=== PATIENT | female | born 1990 | race Caucasian/White ===

== ENCOUNTER 2017-05-03 07:44 | Day surgery (SDC) | payer OTHER ==
[~2017-05-03] VITALS: Ht 167.6 cm; Wt 64.3 kg
--- NOTE | ~2017-05-03 | OR ---
PATIENT'S NAME: MADY MTZ [facility] AGE: 26 [address] ROOM: [address] [address] LOCATION: [facility] ADMIT DATE: 05/03/2017 OR/Procedure Report DISCHARGE DATE: FAMILY PHYSICIAN: PHYSICIAN, JAYCEE ATTENDING PHYSICIAN: Diaz Fernandez SURGEON: Diaz Fernandez MD AUTOMATIC MACHINE ATTENDANT: RACHELLE Cruz DATE OF PROCEDURE: 05/03/2017 PREOPERATIVE DIAGNOSIS: Right tib-fib fracture. POSTOPERATIVE DIAGNOSIS: Right tib-fib fracture. OPERATION: ORIF with long medial locking plate. ANESTHESIA: Popliteal and adductor canal blocks with general ET tube. INDICATIONS: This is a 26-year-old female who sustained a fracture of her right tibia and fibula this past weekend about 4-5 days ago while playing sand volleyball. Radiographs showed a short oblique fracture of the tibia at the junction of the middle and distal thirds and a distal lateral malleolar fracture and a question of a widening of the mortise. DESCRIPTION OF PROCEDURE: The patient was brought to the operating room, and when satisfactory general anesthesia had been established, her right lower extremity was prepped and draped in an aseptic manner. The extremity was exsanguinated with an Esmarch bandage and pneumatic tourniquet inflated to 250 mmHg around the upper thigh. An anteromedial incision was made at the medial malleolus and carried down to the bone. A 14-hole LC-DCP 3.5 mm medial tibial plate was then fixed to the outrigger and the plate was pushed up the subcutaneous border of the tibia. Its position was checked with the C-arm distally and it appeared to fit perfectly, so a guide pin was drilled across one of the holes in the plate to maintain that position. Proximally, the fracture was visualized and reduced with a ball spike clamp and the position of the plate checked on both AP and lateral views and appeared to be satisfactory, so a guide pin was drilled through hole 14 in order to maintain traction and position of the fracture fragments. Distally then four screws were placed, first was a 3.5 cortical screw to suck the plate down onto the bone and then three more locking screws were all placed after drilling a 2.8 hole, measuring, and filling it with a locking screw. Proximally, the screw hole 12 was filled with a 3.5 smooth headed cortical screw to pull the plate down onto the bone and the screw holes 10 and 14 were drilled, measured, and filled with locking screws. The clamp was removed and the fracture appeared to be satisfactorily aligned. The plate appeared to be in satisfactory position and alignment, and so this was accepted. The fibula was visualized PATIENT'S NAME: MADY MTZ [facility] AGE: 26 Y [address] ROOM: [address] [address] LOCATION: [facility] ADMIT DATE: 05/03/2017 OR/Procedure Report DISCHARGE DATE: FAMILY PHYSICIAN: PHYSICIAN, NO ATTENDING PHYSICIAN: Diaz Fernandez and it was nicely reduced at this point. The deltoid ligament was stressed and the mortise did not change. The mortise was anatomically aligned. It was opted to not fix the lateral malleolus. The wounds were irrigated copiously with saline by RACHELLE Horne and subcutaneous fat on the distal wound closed with a running 2-0 Vicryl. The skin was closed with interrupted and running 4-0 nylon sutures for the stab wounds, for the screw holes. Dressings and a boot walker were applied. The tourniquet was deflated, and the patient awakened and sent to recovery area having tolerated the procedure well. MD EVANS CARPIO/mayra /[id number] d: 05/03/17 1526 t: 05/10/17 0910, OPERATIVE SUMMARY
[~2017-05-03 07:44] MED LIST: DEPO PROVER150 MG/ML IM; PERCOCET 5-3251 EACH PO
[2017-05-03 08:58] LABS: HEMATOCRIT 39.3 % (33.0-46.0); HEMOGLOBIN 13.6 g/dL (11.0-15.0)
== END 2017-05-03 17:23 | disposition disaster alternative care site (69) ==
LOC: GSDC 07:44 → G3N 07:44 → GPOC 15:00 → GSDC 17:23
PROVIDERS: Orthopaedic Surgery
PROC: 0QSG04Z Reposition Right Tibia with Internal Fixation Device, Open Approach (ICD-10-PCS; principal; 2017-05-03)
DX: S82.231A Displaced oblique fracture of shaft of right tibia, initial encounter for closed fracture (principal); S82.61XA Displaced fracture of lateral malleolus of right fibula, initial encounter for closed fracture; F17.210 Nicotine dependence, cigarettes, uncomplicated; X58.XXXA Exposure to other specified factors, initial encounter; Y93.68 Activity, volleyball (beach) (court); Z98.1 Arthrodesis status
CPT/HCPCS: C1713; J0690; J2001; J3010; J7120